=== PATIENT | female | born 1970 | race African-American/Black ===

== ENCOUNTER 2016-06-12 18:30 | Emergency (ER) | payer OTHER ==
[~2016-06-12] VITALS: Ht 172.7 cm; Wt 113.4 kg
[2016-06-12] MEDS ORDERED: HYDROCODONE/APAP 5/325MG TABLET. PO ONE (19:45)
[2016-06-12 19:50] LABS: NEG OBC UR NEG; POS OBC UR POS
[2016-06-12 19:52] LABS: BASO # 0.1 x10^3/uL (0.0-0.2); BASO % 1 % (0-3); EOS % 3 % (0-3); HEMATOCRIT 34.2 % (36.0-47.0); HEMOGLOBIN 11.7 g/dL (12.0-15.5); LYMPH # 2.4 x10^3/uL (1.0-4.8); LYMPH % 30 % (24-48); MEAN CORPUSCULAR HEMOGLOBIN 28 pg (25-35); MEAN CORPUSCULAR HGB CONC 34 g/dL (31-37); MEAN CORPUSCULAR VOLUME 81 fL (79-100); MONO % 17 % (0-9); NEUT % 48 % (31-73); PLATELET COUNT 435 x10^3/uL (140-400); RED BLOOD COUNT 4.21 x10^6/uL (3.50-5.40); RED CELL DISTRIBUTION WIDTH 17.5 % (11.5-14.5); WHITE BLOOD COUNT 7.9 x10^3/uL (4.0-11.0)
[2016-06-12 19:54] LABS: BILIRUBIN,URINE MODERATE (NEG); GLUCOSE,URINE NEGATIVE (NEG); NITRITE,URINE NEGATIVE (NEG); PH,URINE 5.5; PROTEIN,URINE NEGATIVE (NEG-TRACE)
[2016-06-12 20:04] LABS: BACTERIA,URINE FEW /HPF (0-FEW); RBC,URINE 0 /HPF (0-2); SQUAMOUS EPITHELIAL CELL,UR MANY /LPF
--- NOTE | 2016-06-12 21:05 | PHYS DOC ---
Past Medical History Past Medical History: GERD Past Surgical History: No Surgical History Alcohol Use: Occasionally Drug Use: None Adult General Chief Complaint Chief Complaint: ABDOMINAL PAIN HPI HPI 45-year-old female presenting to the emergency department today with abdominal pain generally. She reports suprapubic abdominal pain. The pain is sharp and intermittent. It is associated with flank pain. It is nonradiating. It is constant. She also has noticed mild yellowing of her skin and conjunctiva. She also feels that she's had low energy recently. She denies any nausea or vomiting. She denies fevers or chills. Review of Systems Review of Systems ROS negative for chest pain shortness of breath. Negative for fevers or chills nausea or vomiting. All other review of systems is negative unless otherwise noted in history of present illness. Current Medications Current Medications Current Medications Medications (Trade) Dose Ordered Sig/Narendra Start Time Stop Time Status Last Admin Dose Admin Acetaminophen/ Hydrocodone Bitart (Lortab 5/325) 2 tab 1X ONCE 06/12/16 19:45 06/12/16 19:56 DC 06/12/16 20:14 2 TAB Allergies Allergies Allergies Coded Allergies Type Severity Reaction Last Updated Verified codeine Allergy Intermediate 05/18/14 Yes Physical Exam Physical Exam Constitutional: Well developed, well nourished, no acute distress, non-toxic appearance. HENT: Normocephalic, atraumatic, bilateral external ears normal, oropharynx moist, no oral exudates, nose normal. [] Eyes: PERRLA, EOMI, conjunctiva mildly yellow, no discharge. Neck: Normal range of motion, no tenderness, supple, no stridor. [] Cardiovascular:Heart rate regular rhythm, no murmur [] Lungs & Thorax: Bilateral breath sounds clear to auscultation Abdomen: Soft nontender abdomen without rebound tenderness or guarding present. Negative McBurneys point. Negative Diaz sign. No ecchymosis present. Skin: Warm, dry, no erythema, no rash. Back: No tenderness, no CVA tenderness. [] Extremities: No tenderness, no cyanosis, no clubbing, ROM intact, no edema. Neurologic: Alert and oriented X 3, normal motor function, normal sensory function, no focal deficits noted. Psychologic: Affect normal, judgement normal, mood normal. [] Current Patient Data Vital Signs Vital Signs Date Time Temp Pulse Resp B/P Pulse Ox O2 Delivery O2 Flow Rate FiO2 06/12/16 20:14 18 Room Air 06/12/16 20:13 84 116/70 100 06/12/16 19:16 98.4 98.4 Lab Values Laboratory Tests Test 06/12/16 19:30 06/12/16 19:40 White Blood Count 7.9x10^3/uL (4.0-11.0) Red Blood Count 4.21x10^6/uL (3.50-5.40) Hemoglobin 11.7g/dL (12.0-15.5) L Hematocrit 34.2% (36.0-47.0) L Mean Corpuscular Volume 81fL (79-100) Mean Corpuscular Hemoglobin 28pg (25-35) Mean Corpuscular Hemoglobin Concent 34g/dL (31-37) Red Cell Distribution Width 17.5% (11.5-14.5) H Platelet Count 435x10^3/uL (140-400) H Neutrophils (%) (Auto) 48% (31-73) Lymphocytes (%) (Auto) 30% (24-48) Monocytes (%) (Auto) 17% (0-9) H Eosinophils (%) (Auto) 3% (0-3) Basophils (%) (Auto) 1% (0-3) Neutrophils # (Auto) 3.7x10^3uL (1.8-7.7) Lymphocytes # (Auto) 2.4x10^3/uL (1.0-4.8) Monocytes # (Auto) 1.4x10^3/uL (0.0-1.1) H Eosinophils # (Auto) 0.3x10^3/uL (0.0-0.7) Basophils # (Auto) 0.1x10^3/uL (0.0-0.2) Urine Collection Type Unknown Urine Color [place] Urine Clarity Turbid Urine pH 5.5 Urine Specific [place] 1.020 Urine Protein Negativemg/dL (NEG-TRACE) Urine Glucose (UA) Negativemg/dL (NEG) Urine Ketones (Stick) Negativemg/dL (NEG) Urine Blood Negative (NEG) Urine Nitrite Negative (NEG) Urine Bilirubin Moderate (NEG) Urine Urobilinogen Dipstick 1.0mg/dL (0.2 mg/dL) Urine Leukocyte Esterase Negative (NEG) Urine RBC 0/HPF (0-2) Urine WBC 1-4/HPF (0-4) Urine Squamous Epithelial Cells Many/LPF Urine Bacteria Few/HPF (0-FEW) Urine Mucus Mod/LPF Urine Test Negative (NEG) Laboratory Tests 06/12/16 19:30 EKG EKG [] Radiology/Procedures Radiology/Procedures [] Course & Med Decision Making Course & Med Decision Making Pertinent Labs and Imaging studies reviewed. (See chart for details) 45-year-old female presenting to the emergency department today with generalized abdominal pain. Vital signs were unremarkable. Physical exam showed a nontender abdomen. There was yellowing of the skin suggestive of jaundiceness. Urinalysis was positive for bilirubin. No signs of infection. CBC within normal limits. Chemistry panel pending at this time. Repeat abdominal exam continues to show a nontender abdomen. Patient was signed out to Dr. Lopes at 9:00 PM. Plan to follow up on chemistry panel and reevaluation. Dragon Disclaimer Dragon Disclaimer This electronic medical record was generated, in whole or in part, using a voice recognition dictation system. Departure Departure Impression: Primary Impression: Abdominal pain Referrals: NO PCP (PCP) ALY KIRBY MD Jun 12, 2016 21:05
[2016-06-12 21:16] LABS: CALCIUM 8.1 mg/dL (8.5-10.1); GFR 72.2; POTASSIUM 3.8 mmol/L (3.5-5.1)
[2016-06-12 21:27] LABS: ALBUMIN 2.2 g/dL (3.4-5.0); ALBUMIN/GLOBULIN RATIO 0.3 (1.0-1.7); TOTAL BILIRUBIN 4.3 mg/dL (0.2-1.0); TOTAL PROTEIN 8.9 g/dL (6.4-8.2)
[2016-06-12] MEDS ORDERED: HYDR25CA PO (22:38)
[2016-06-12] MEDS ORDERED: ONDA4TAB10 SL (22:38)
--- NOTE | 2016-06-12 22:42 | ACF ---
Admission Forms Criteria ABDOMINAL PAIN Clinical Indications for Admission to Inpatient Care (Place 'X' for any and all applicable criteria): Admission is indicated for ANY ONE of the following(1)(2)(3)(4)(5): [X ]I. Inpatient admission required rather than observation care (Also use Abdominal Pain: Observation Care, as appropriate) because of ANY ONE of the following: [ ]a) Severe pain requiring acute inpatient management [ ]b) Identification of etiology/finding that requires inpatient care (eg, aortic dissection, free air) [ ]c) Absent bowel sounds with complete ileus(6) [ ]d) Suspected toxic megacolon [ ]e) Severe electrolyte abnormalities requiring inpatient care [ ]f) High fever or infection requiring inpatient admission as indicated by ANY ONE of following(7)(8): [ ] i) Appropriate outpatient or observational care antimicrobial treatment unavailable, not effective, or not feasible [ ] ii) Documented bacteremia [ ] iii) Temperature > 104.9 degrees F (oral) [ ] iv) T >103.1 F (oral) or < 96.8 F(rectal) that does not respond to all emergency treatment measures [ ]g) Signs of intestinal obstruction [B] [X ]h) Hemodynamic instability [ ]i) IV fluid to replace significant ongoing losses (greater than 3 L/m2 per day) (12)(13) [ ]j) Percutaneous or open drainage (eg, abscess, biliary tract ) procedures [ ]k) Parenteral nutrition regimen that must be implemented on inpatient basis [X ]l) Other condition,treatment or monitoring requiring inpatient admission. [ ]II. Peritoneal signs present [ ]III. Surgery needed that cannot be performed on an ambulatory basis. [ ]IV. Evaluation requires patient to not eat or drink for extended period ( eg, more than 24 hours). [ ]V. Contraindications and/or Inappropriate clinical situations for Observational Care in patients with abdominal pain, when ANY ONE of the following is required: [ ]a) Thorough evaluation is required to prevent catastrophic events due to delays in diagnosing (e.g.Mesenteric ischemia) 1,3 [ ]b) Patient with severe pathology or with chronic symptoms unlikely to improve in the ED stay (3) [ ]. General contraindications and/or Inappropriate clinical situations for Observational Care in patients with abdominal pain, when ANY ONE of the following is required: [ ]a) Prediction of prolongation of LOS based on ANY ONE of the following may be considered as a contraindication for observational care 2, 3, 4, 5, 6, 7, 8, 9, 10, 11 [ ]i) Age > 65 yrs. [ ]ii) Patient arriving by ambulance [ ]iii) Patient with high acuity [ ]iv) Patient requiring vital sign monitoring [ ]v) Patient on IV medication [ ]b) Systolic blood pressures 180mmHg 3,12 [ ]c) Patient with altered mental status including delirium and other alteration of consciousness, (3) [ ]d) Patient whose discharge disposition will be to a retirement home or rehabilitation home should not be managed in Emergency Department Observation Unit. CMS rule requires 3 days hospital stay before such placement.3,13 [ ]e) Patient with failure to thrive due to broad array of etiologies 3,16,17 [ ]f) Inability to ambulate 3,14 Extended stay beyond goal length of stay may be needed for(2)(3): [ ]a) Persistent abdominal pain with suspected intra-abdominal process [ ]b) Diagnosed condition requiring continued stay (e.g., pancreatitis, complicated diverticulitis) [ ]c) Surgery (e.g., colectomy) The original [facility] content created by [employer] has been revised. The portions of the content which have been revised are identified through the use of italic text or in bold, and [facility] has neither reviewed nor approved the modified material.All other unmodified content is copyright [facility]. Please see references footnoted in the original [facility] edition 2016 Admission Criteria Met?: Yes PRAVEEN CHAMORRO Jun 12, 2016 22:42
[2016-06-12 22:43] VITALS: BP 117/68
[2016-06-12 23:01] LABS: ANISOCYTOSIS SLIGHT; PLT ESTIMATE INCREASED (ADEQUATE); POLYCHROMASIA SLIGHT
[2016-06-12 23:02] LABS: TARGET CELLS MANY
== END 2016-06-12 22:53 | disposition home or self-care (01) ==
LOC: ER 18:30
DX: R10.30 Lower abdominal pain, unspecified (principal); K75.9 Inflammatory liver disease, unspecified; R11.2 Nausea with vomiting, unspecified; K21.9 Gastro-esophageal reflux disease without esophagitis; Z88.6 Allergy status to analgesic agent
CPT/HCPCS: 36415; 80053; 81001; 81025; 83690; 85007; 85027; 99284

== ENCOUNTER 2018-07-04 01:00 | Inpatient (IN) | payer SELFPAY ==
[~2018-07-04] VITALS: Ht 172.7 cm; Wt 123.0 kg
[~2018-07-04 01:00] MED LIST: HYDR25CA PO; ONDA4TAB10 SL
[2018-07-04 01:38] LABS: BASO # 0.1 x10^3/uL (0.0-0.2); BASO % 1 % (0-3); EOS # 0.1 x10^3/uL (0.0-0.7); EOS % 2 % (0-3); HEMATOCRIT 36.1 % (36.0-47.0); HEMOGLOBIN 11.9 g/dL (12.0-15.5); LYMPH # 1.8 x10^3/uL (1.0-4.8); LYMPH % 29 % (24-48); MEAN CORPUSCULAR HEMOGLOBIN 30 pg (25-35); MEAN CORPUSCULAR HGB CONC 33 g/dL (31-37); MEAN CORPUSCULAR VOLUME 90 fL (79-100); MONO # 0.6 x10^3/uL (0.0-1.1); MONO % 10 % (0-9); NEUT # 3.6 x10^3uL (1.8-7.7); NEUT % 58 % (31-73); PLATELET COUNT 165 x10^3/uL (140-400); RED BLOOD COUNT 4.02 x10^6/uL (3.50-5.40); RED CELL DISTRIBUTION WIDTH 22.3 % (11.5-14.5); WHITE BLOOD COUNT 6.3 x10^3/uL (4.0-11.0)
[2018-07-04] MEDS ORDERED: DEXAMETHASONE SOD PHOS 20 MG/5 ML VIAL. IV ONE (01:45)
[2018-07-04] MEDS ORDERED: IV NORMAL SALINE 1000ML BAG 1,000 ML IV ONE (01:45)
[2018-07-04] MEDS ORDERED: diphenhydrAMINE 50 MG/ML VIAL IVP ONE (01:45)
[2018-07-04 01:55] LABS: CALCIUM 8.2 mg/dL (8.5-10.1); GFR 71.6; POTASSIUM 3.6 mmol/L (3.5-5.1)
[2018-07-04 02:05] LABS: ALBUMIN 2.1 g/dL (3.4-5.0); ALBUMIN/GLOBULIN RATIO 0.3 (1.0-1.7); MAGNESIUM 1.7 mg/dL (1.8-2.4); TOTAL BILIRUBIN 4.5 mg/dL (0.2-1.0); TOTAL PROTEIN 9.9 g/dL (6.4-8.2)
--- NOTE | 2018-07-04 02:40 | PHYS DOC ---
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 Patient reports that she was diagnosed with an autoimmune liver condition but can't remember what it was, she has not followed up with her liver doctor in two years because she can't pay for it. She reports that she has had this rash before and she was treated with steroids and it resolved. She reports that the rash is worse at night, she denies nausea, vomiting, diarrhea, and constipation. She reports that the rash began on her chest Review of Systems Review of Systems Constitutional: Denies fever or chills [] Eyes: Denies change in visual acuity, redness, or eye pain [] HENT: Denies nasal congestion or sore throat [] Respiratory: Denies cough or shortness of breath [] Cardiovascular: Denies chest pain or palpitations [] GI: Denies abdominal pain, nausea, vomiting, or diarrhea [] : Denies dysuria or hematuria [] Musculoskeletal: Denies back pain or joint pain [] Integument: Reports pruritic rash and skin lesions across chest and back [] Neurologic: Denies headache, focal weakness or sensory changes [] Complete systems were reviewed and found to be within normal limits, except as documented in this note. Current Medications Current Medications Current Medications Medications (Trade) Dose Ordered Sig/Narendra Start Time Stop Time Status Last Admin Dose Admin Dexamethasone Sodium Phosphate (Decadron) 10 mg 1X ONCE 07/04/18 01:45 07/04/18 01:46 DC 07/04/18 02:30 10 MG Diphenhydramine HCl (Benadryl) 25 mg 1X ONCE 07/04/18 01:45 07/04/18 01:46 DC 07/04/18 02:15 25 MG Magnesium Sulfate 50 ml @ 25 mls/hr 1X ONCE 07/04/18 03:00 07/04/18 04:59 07/04/18 03:02 25 MLS/HR Ondansetron HCl (Zofran) 4 mg PRN Q8HRS PRN 07/04/18 03:00 07/05/18 02:59 Sodium Chloride 1,000 ml @ 1,000 mls/hr 1X ONCE 07/04/18 01:45 07/04/18 02:44 DC 07/04/18 02:15 1,000 MLS/HR Allergies Allergies Allergies Coded Allergies Type Severity Reaction Last Updated Verified codeine Allergy Intermediate 05/18/14 Yes Physical Exam Physical Exam Constitutional: Well developed, well nourished, no acute distress, non-toxic appearance. [] HENT: Normocephalic, atraumatic, nose normal. [] Eyes: Sclera icteric, no discharge. [] Neck: Normal range of motion, no tenderness. [] Cardiovascular: Heart rate regular rhythm, no murmur [] Lungs & Thorax: Bilateral breath sounds clear to auscultation [] Abdomen: Soft, no tenderness. [] Skin: Warm, dry, no erythema, pruritic vesicular rash across the chest and back [] Extremities: No tenderness, 1+ pitting edema BLE. [] Neurologic: Alert and oriented X 3, no focal deficits noted. [] Psychologic: Affect normal, judgement normal, mood normal. [] Current Patient Data Vital Signs Vital Signs Date Time Temp Pulse Resp B/P (MAP) Pulse Ox O2 Delivery O2 Flow Rate FiO2 07/04/18 03:14 82 16 136/84 (101) 98 Room Air 07/04/18 01:22 98.3 98.3 Lab Values Laboratory Tests Test 07/04/18 01:26 White Blood Count 6.3 x10^3/uL (4.0-11.0) Red Blood Count 4.02 x10^6/uL (3.50-5.40) Hemoglobin 11.9 g/dL (12.0-15.5) L Hematocrit 36.1 % (36.0-47.0) Mean Corpuscular Volume 90 fL (79-100) Mean Corpuscular Hemoglobin 30 pg (25-35) Mean Corpuscular Hemoglobin Concent 33 g/dL (31-37) Red Cell Distribution Width 22.3 % (11.5-14.5) H Platelet Count 165 x10^3/uL (140-400) Neutrophils (%) (Auto) 58 % (31-73) Lymphocytes (%) (Auto) 29 % (24-48) Monocytes (%) (Auto) 10 % (0-9) H Eosinophils (%) (Auto) 2 % (0-3) Basophils (%) (Auto) 1 % (0-3) Neutrophils # (Auto) 3.6 x10^3uL (1.8-7.7) Lymphocytes # (Auto) 1.8 x10^3/uL (1.0-4.8) Monocytes # (Auto) 0.6 x10^3/uL (0.0-1.1) Eosinophils # (Auto) 0.1 x10^3/uL (0.0-0.7) Basophils # (Auto) 0.1 x10^3/uL (0.0-0.2) Platelet Estimate Pending Prothrombin Time 17.0 SEC (11.7-14.0) H Prothrombin Time INR 1.4 (0.8-1.1) H PTT 38 SEC (24-38) Sodium Level 132 mmol/L (136-145) L Potassium Level 3.6 mmol/L (3.5-5.1) Chloride Level 102 mmol/L (98-107) Carbon Dioxide Level 25 mmol/L (21-32) Anion Gap 5 (6-14) L Blood Urea Nitrogen 10 mg/dL (7-20) Creatinine 1.0 mg/dL (0.6-1.0) Estimated GFR (Cockcroft-Gault) 71.6 BUN/Creatinine Ratio 10 (6-20) Glucose Level 132 mg/dL (70-99) H Calcium Level 8.2 mg/dL (8.5-10.1) L Magnesium Level 1.7 mg/dL (1.8-2.4) L Total Bilirubin 4.5 mg/dL (0.2-1.0) H Aspartate Amino Transferase (AST) 1125 U/L (15-37) H Alanine Aminotransferase (ALT) 592 U/L (14-59) H Alkaline Phosphatase 399 U/L (46-116) H Ammonia 26 mcmol/L (11-34) Total Protein 9.9 g/dL (6.4-8.2) H Albumin 2.1 g/dL (3.4-5.0) L Albumin/Globulin Ratio 0.3 (1.0-1.7) L Lipase 186 U/L (73-393) Laboratory Tests 07/04/18 01:26 Laboratory Tests 07/04/18 01:26 EKG EKG [] Radiology/Procedures Radiology/Procedures [] Course & Med Decision Making Course & Med Decision Making Pertinent Labs and Imaging studies reviewed. (See chart for details) Patient is a 47 YO F that is presenting with a pruritic rash that began 2 weeks ago. Patient has a history of autoimmune liver disease and has had a rash before that was treated with steroids. She has been unable to follow up with her auto hauler at because she cannot pay for it. Her daughter two weeks ago which coincides with the onset of symptoms. Labs were obtained and posted to chart. LFT's were slightly decreased compared to last visit, bilirubin was slightly increased compared to last time. Pruritus was addressed with steroids. Patient offered outpatient follow up versus admission and evaluation of progression of liver disease. Patient reports she does not have a PCP. Patient opts to be admitted because of inability to follow-up. Patient requiring admission for further evaluation and treatment. Discussed with Dr. Burrell (hospitalist) who is in agreement with admission. Discussed findings and plan with patient and family, who acknowledge understanding and agreement. Dragon Disclaimer Dragon Disclaimer This electronic medical record was generated, in whole or in part, using a voice recognition dictation system. Departure Departure Impression: Primary Impression: Hyperbilirubinemia Additional Impressions: Generalized pruritus Transaminasemia Disposition: ADMITTED INPATIENT (Med/Surg) Admitting Physician: Tiki Burrell Condition: STABLE Referrals: NO PCP (PCP) Problem Qualifiers ASHLEY PATEL DO Jul 04, 2018 02:40
[2018-07-04] MEDS ORDERED: ONDANSETRON PF 4 MG/2 ML VIAL. IV PRN ×2 (03:00→08:15)
[2018-07-04] MEDS ORDERED: MAGNESIUM SULFATE 2GM 50 ML IV ONE (03:00)
[2018-07-04 04:30] VITALS: BP 143/102
[2018-07-04 05:21] LABS: ANISOCYTOSIS SLIGHT; PLT ESTIMATE ADEQUATE (ADEQUATE); TARGET CELLS MOD
[2018-07-04] MEDS ORDERED: LISI1TAB5 PO (05:33)
--- NOTE | 2018-07-04 05:37 | NUR ---
The patient, WILLIAM WALSH, 47 y/o, F admitted by DEMETRI CABRERA MD, was given written information regarding hospital policies, unit procedures and contact persons. Patient arrived via wheelchair assisted by ED staff. Valuables were checked and noted. Patient is in bed at this time watching TV. Pictures were taken of patient's rash. Patient states no needs at this time, this RN will continue to monitor the patient at this time.
[2018-07-04 07:00] VITALS: BP 123/74
[2018-07-04] MEDS ORDERED: ACETAMINOPHEN 500 MG TABLET PO PRN (08:15)
[2018-07-04] MEDS ORDERED: hydrOXYzine PAMOATE 25 MG CAPSULE PO PRN (08:15)
[2018-07-04] MEDS ORDERED: NON FORMULARY ITEM (Lisinopril/Hydrochlorothiazide (Lisinopril-Hctz 20-12.5 Mg Tab) 1 TAB) PO SCH (09:00)
[2018-07-04] MEDS ORDERED: IOHEXOL 300 MG/ML 100ML VIAL. IV ONE (09:30)
[2018-07-04] MEDS ORDERED: CONTRAST GIVEN. MC PRN (09:30)
--- NOTE | 2018-07-04 09:51 | PDOC2 ---
CONSULT Date of Consult Date of Consult DATE: 07/04/18 TIME: 09:38 History of Present Illness Reason for Visit: 47 yo female with history of abnormal LFTs dating back for over two years- similar labs seen at ER visit here in 06/2016. We don't have the records but was referred to [facility] and she relates liver biopsy and diagnosis of autoimmune liver disease made. She was started on Imuran and Budesonide - not sure how effective because she lost her insurance and so f/u limited and had to stop budesonide due to cost. she did however continue Imuran. She relates episodes of jaundice and pruritus and rash, mostly in winter she believes. She presents now with rash on chest with pruritus, and jaundice. She denies fever, cough, abd pain but does have occasional loose stool (unchanged) Past Medical History Cardiovascular: HTN Hepatobiliary: Other (autoimmune liver disease) Current Problem List Problem List Problems Medical Problems: (1) Generalized pruritus Status: Acute (2) Hyperbilirubinemia Status: Acute (3) Transaminasemia Status: Acute Current Medications Current Medications Current Medications Dexamethasone Sodium Phosphate (Decadron) 10 mg 1X ONCE IV Last administered on 07/04/18at 02:30; Start 07/04/18 at 01:45; Stop 07/04/18 at 01:46; Status DC Diphenhydramine HCl (Benadryl) 25 mg 1X ONCE IVP Last administered on at 02:15; Start 07/04/18 at 01:45; Stop 07/04/18 at 01:46; Status DC Sodium Chloride 1,000 ml @ 1,000 mls/hr 1X ONCE IV Last administered on at 02:15; Start 07/04/18 at 01:45; Stop 07/04/18 at 02:44; Status DC Magnesium Sulfate 50 ml @ 25 mls/hr 1X ONCE IV Last administered on 07/04/18at 03:02; Start 07/04/18 at 03:00; Stop 07/04/18 at 04:59; Status DC Ondansetron HCl (Zofran) 4 mg PRN Q8HRS PRN IV NAUSEA/VOMITING; Start 07/04/18 at 03:00; Stop 07/04/18 at 08:12; Status DC Ondansetron HCl (Zofran) 4 mg PRN Q6HRS PRN IV NAUSEA/VOMITING; Start 07/04/18 at 08:15 Acetaminophen (Tylenol) 500 mg PRN Q6HRS PRN PO MILD PAIN / TEMP; Start at 08:15 Ondansetron HCl (Zofran Odt) 4 mg Q8HRS PO ; Start 07/04/18 at 09:00 Hydroxyzine Pamoate (Vistaril) 25 mg PRN TID PRN PO ITCHING; Start 07/04/18 at 08:15 Non-Formulary Medication (Lisinopril/ Hydrochlorothiazide (Lisinopril-Hctz 20- 12.5 Mg Tab)) 1 tab DAILY PO ; Start 07/04/18 at 09:00; Status UNV Lisinopril (Prinivil) 20 mg DAILY PO ; Start 07/04/18 at 09:00 Hydrochlorothiazide (Microzide) 12.5 mg DAILY PO ; Start 07/04/18 at 09:00 Iohexol (Omnipaque 300 Mg/ml) 75 ml 1X ONCE IV ; Start 07/04/18 at 09:30; Stop 07/04/18 at 09:31 Info (CONTRAST GIVEN -- Rx MONITORING) 1 each PRN DAILY PRN MC SEE COMMENTS; Start 07/04/18 at 09:30; Stop 07/06/18 at 09:29 Active Scripts Active Vistaril (Hydroxyzine Pamoate) 25 Mg Capsule 1 Cap PO TID PRN Zofran Odt (Ondansetron) 4 Mg Tab.rapdis 1 Tab SL Q8HRS Reported Lisinopril-Hctz 20-12.5 Mg Tab (Lisinopril/Hydrochlorothiazide) 1 Each Tablet 1 Tab PO DAILY Allergies Allergies: Coded Allergies: codeine (Verified Allergy, Intermediate, 05/18/14) ROS Gastrointestinal: Yes Other (jaundice) Skin: Yes Pruritus, Yes Rash Physical Exam General: Alert, Oriented X3 HEENT: PERRLA, Other (mild jaundice) Lungs: Clear to auscultation Heart: Regular rate, Normal S1, Normal S2 Abdomen: Normal bowel sounds, Soft, No tenderness, No hepatosplenomegaly Skin: Other (mild rash on chest with some excoriation) Vitals VITALS Vital Signs Date Time Temp Pulse Resp B/P (MAP) Pulse Ox O2 Delivery O2 Flow Rate FiO2 07/04/18 07:00 97.9 87 18 123/74 (90) 97 Room Air 97.9 Labs Labs Laboratory Tests Test 07/04/18 01:26 White Blood Count 6.3 x10^3/uL (4.0-11.0) Red Blood Count 4.02 x10^6/uL (3.50-5.40) Hemoglobin 11.9 g/dL (12.0-15.5) Hematocrit 36.1 % (36.0-47.0) Mean Corpuscular Volume 90 fL (79-100) Mean Corpuscular Hemoglobin 30 pg (25-35) Mean Corpuscular Hemoglobin Concent 33 g/dL (31-37) Red Cell Distribution Width 22.3 % (11.5-14.5) Platelet Count 165 x10^3/uL (140-400) Neutrophils (%) (Auto) 58 % (31-73) Lymphocytes (%) (Auto) 29 % (24-48) Monocytes (%) (Auto) 10 % (0-9) Eosinophils (%) (Auto) 2 % (0-3) Basophils (%) (Auto) 1 % (0-3) Neutrophils # (Auto) 3.6 x10^3uL (1.8-7.7) Lymphocytes # (Auto) 1.8 x10^3/uL (1.0-4.8) Monocytes # (Auto) 0.6 x10^3/uL (0.0-1.1) Eosinophils # (Auto) 0.1 x10^3/uL (0.0-0.7) Basophils # (Auto) 0.1 x10^3/uL (0.0-0.2) Platelet Estimate Adequate (ADEQUATE) Anisocytosis Slight Target Cells Mod Prothrombin Time 17.0 SEC (11.7-14.0) Prothromb Time International Ratio 1.4 (0.8-1.1) Activated Partial Thromboplast Time 38 SEC (24-38) Sodium Level 132 mmol/L (136-145) Potassium Level 3.6 mmol/L (3.5-5.1) Chloride Level 102 mmol/L (98-107) Carbon Dioxide Level 25 mmol/L (21-32) Anion Gap 5 (6-14) Blood Urea Nitrogen 10 mg/dL (7-20) Creatinine 1.0 mg/dL (0.6-1.0) Estimated GFR (Cockcroft-Gault) 71.6 BUN/Creatinine Ratio 10 (6-20) Glucose Level 132 mg/dL (70-99) Calcium Level 8.2 mg/dL (8.5-10.1) Magnesium Level 1.7 mg/dL (1.8-2.4) Total Bilirubin 4.5 mg/dL (0.2-1.0) Aspartate Amino Transf (AST/SGOT) 1125 U/L (15-37) Alanine Aminotransferase (ALT/SGPT) 592 U/L (14-59) Alkaline Phosphatase 399 U/L (46-116) Ammonia 26 mcmol/L (11-34) Total Protein 9.9 g/dL (6.4-8.2) Albumin 2.1 g/dL (3.4-5.0) Albumin/Globulin Ratio 0.3 (1.0-1.7) Lipase 186 U/L (73-393) Laboratory Tests Test 07/04/18 01:26 White Blood Count 6.3 x10^3/uL (4.0-11.0) Red Blood Count 4.02 x10^6/uL (3.50-5.40) Hemoglobin 11.9 g/dL (12.0-15.5) Hematocrit 36.1 % (36.0-47.0) Mean Corpuscular Volume 90 fL (79-100) Mean Corpuscular Hemoglobin 30 pg (25-35) Mean Corpuscular Hemoglobin Concent 33 g/dL (31-37) Red Cell Distribution Width 22.3 % (11.5-14.5) Platelet Count 165 x10^3/uL (140-400) Neutrophils (%) (Auto) 58 % (31-73) Lymphocytes (%) (Auto) 29 % (24-48) Monocytes (%) (Auto) 10 % (0-9) Eosinophils (%) (Auto) 2 % (0-3) Basophils (%) (Auto) 1 % (0-3) Neutrophils # (Auto) 3.6 x10^3uL (1.8-7.7) Lymphocytes # (Auto) 1.8 x10^3/uL (1.0-4.8) Monocytes # (Auto) 0.6 x10^3/uL (0.0-1.1) Eosinophils # (Auto) 0.1 x10^3/uL (0.0-0.7) Basophils # (Auto) 0.1 x10^3/uL (0.0-0.2) Platelet Estimate Adequate (ADEQUATE) Anisocytosis Slight Target Cells Mod Prothrombin Time 17.0 SEC (11.7-14.0) Prothromb Time International Ratio 1.4 (0.8-1.1) Activated Partial Thromboplast Time 38 SEC (24-38) Sodium Level 132 mmol/L (136-145) Potassium Level 3.6 mmol/L (3.5-5.1) Chloride Level 102 mmol/L (98-107) Carbon Dioxide Level 25 mmol/L (21-32) Anion Gap 5 (6-14) Blood Urea Nitrogen 10 mg/dL (7-20) Creatinine 1.0 mg/dL (0.6-1.0) Estimated GFR (Cockcroft-Gault) 71.6 BUN/Creatinine Ratio 10 (6-20) Glucose Level 132 mg/dL (70-99) Calcium Level 8.2 mg/dL (8.5-10.1) Magnesium Level 1.7 mg/dL (1.8-2.4) Total Bilirubin 4.5 mg/dL (0.2-1.0) Aspartate Amino Transf (AST/SGOT) 1125 U/L (15-37) Alanine Aminotransferase (ALT/SGPT) 592 U/L (14-59) Alkaline Phosphatase 399 U/L (46-116) Ammonia 26 mcmol/L (11-34) Total Protein 9.9 g/dL (6.4-8.2) Albumin 2.1 g/dL (3.4-5.0) Albumin/Globulin Ratio 0.3 (1.0-1.7) Lipase 186 U/L (73-393) Assessment/Plan Assessment/Plan Jaundice and abnormal LFTS- with her history, consistent with inadequately treated autoimmune liver disease- on Imuran but present symptoms and labs suggest changes are in order- we need records but her prior labs and her history of [facility] liver clinic and liver biopsy, along with the meds she is on, all support this diagnosis Rash- not sure if this is just from pruritus from liver disease (most likely) or a separate issue Plan- this is an outpt management issue but she has lost her insurance so re- establishing access to medical care is lazo- if not better managed, she will progress to cirrhosis and end stage liver disease will screen with US just to make sure nothing else is ongoing will start prednisone on taper- should help pruritus and autoimmune liver disease with little short term risk would increase dose of Imuran to 150 mg - the 100 mg is not working is is fairly low dose ( should be greater than 1 or 1.5 mg /kg) Ok for d/c soon from GI point of view order records from [facility] RAVEN COMBS MD Jul 04, 2018 09:51
[2018-07-04] MEDS ORDERED: predniSONE 10 MG TABLET PO SCH (10:00)
[2018-07-04] MEDS ORDERED: predniSONE 20 MG TABLET PO SCH (10:00)
--- NOTE | 2018-07-04 11:01 | PDOC1 ---
History and Physical Date of Admission Date of Admission DATE: 07/04/18 TIME: 10:54 Identification/Chief Complaint Chief Complaint jaundice, pruritus Source Source: Caregiver, Chart review, Patient History of Present Illness History of Present Illness [id number] obese female sounds like diagnosis of inadequately treated autoimmune hepatitis, claims on Imuran but self-pay hence some issues with following up [facility] so that's when she decided to come here. But claims of jaundice, pruritus. She is currently scratching. Admitted by ER because of hyperbilirubinemia elevated LFTs. She is nontoxic appearing. AST 592 [id number]. Total bili is 4.5. NO abd pain, She is a smoker. Magnesium mildly low 1.7 with sodium 132. We're requesting [facility] records. GI has seen pt and also feels the same. Started some prednisone and maybe increase Imuran. The rest will have to decide once we get [facility] records. I did order ultrasound, I did cancel CAT scan pending [facility] records acquisition Past Medical History Cardiovascular: HTN Hepatobiliary: Other (autoimmune liver disease) Past Surgical History Past Surgical History: No pertinent history Family History Family History: No Significant Social History Smoke: <1 pack per day ALCOHOL: none Drugs: None Current Problem List Problem List Problems Medical Problems: (1) Generalized pruritus Status: Acute (2) Hyperbilirubinemia Status: Acute (3) Transaminasemia Status: Acute Current Medications Current Medications Current Medications Dexamethasone Sodium Phosphate (Decadron) 10 mg 1X ONCE IV Last administered on 07/04/18at 02:30; Start 07/04/18 at 01:45; Stop 07/04/18 at 01:46; Status DC Diphenhydramine HCl (Benadryl) 25 mg 1X ONCE IVP Last administered on at 02:15; Start 07/04/18 at 01:45; Stop 07/04/18 at 01:46; Status DC Sodium Chloride 1,000 ml @ 1,000 mls/hr 1X ONCE IV Last administered on at 02:15; Start 07/04/18 at 01:45; Stop 07/04/18 at 02:44; Status DC Magnesium Sulfate 50 ml @ 25 mls/hr 1X ONCE IV Last administered on 07/04/18at 03:02; Start 07/04/18 at 03:00; Stop 07/04/18 at 04:59; Status DC Ondansetron HCl (Zofran) 4 mg PRN Q8HRS PRN IV NAUSEA/VOMITING; Start 07/04/18 at 03:00; Stop 07/04/18 at 08:12; Status DC Ondansetron HCl (Zofran) 4 mg PRN Q6HRS PRN IV NAUSEA/VOMITING; Start 07/04/18 at 08:15 Acetaminophen (Tylenol) 500 mg PRN Q6HRS PRN PO MILD PAIN / TEMP; Start at 08:15 Ondansetron HCl (Zofran Odt) 4 mg Q8HRS PO ; Start 07/04/18 at 09:00 Hydroxyzine Pamoate (Vistaril) 25 mg PRN TID PRN PO ITCHING; Start 07/04/18 at 08:15 Non-Formulary Medication (Lisinopril/ Hydrochlorothiazide (Lisinopril-Hctz 20- 12.5 Mg Tab)) 1 tab DAILY PO ; Start 07/04/18 at 09:00; Status UNV Lisinopril (Prinivil) 20 mg DAILY PO ; Start 07/04/18 at 09:00 Hydrochlorothiazide (Microzide) 12.5 mg DAILY PO ; Start 07/04/18 at 09:00 Iohexol (Omnipaque 300 Mg/ml) 75 ml 1X ONCE IV ; Start 07/04/18 at 09:30; Stop 07/04/18 at 09:31; Status DC Info (CONTRAST GIVEN -- Rx MONITORING) 1 each PRN DAILY PRN MC SEE COMMENTS; Start 07/04/18 at 09:30; Stop 07/06/18 at 09:29 Azathioprine (Imuran) 150 mg DAILY PO ; Start 07/04/18 at 10:00 Prednisone (Prednisone) 40 mg DAILY PO ; Start 07/04/18 at 10:00; Stop 07/04/18 at 10:00; Status DC Prednisone (Prednisone) 40 mg DAILY PO ; Start 07/04/18 at 10:00 Active Scripts Active Vistaril (Hydroxyzine Pamoate) 25 Mg Capsule 1 Cap PO TID PRN Zofran Odt (Ondansetron) 4 Mg Tab.rapdis 1 Tab SL Q8HRS Reported Lisinopril-Hctz 20-12.5 Mg Tab (Lisinopril/Hydrochlorothiazide) 1 Each Tablet 1 Tab PO DAILY Allergies Allergies: Coded Allergies: codeine (Verified Allergy, Intermediate, 05/18/14) ROS Review of System pruritus, jaundice, the rest of ROS 14 point negative Physical Exam General: Alert, Oriented X3, Cooperative, No acute distress, Other (icteric sclerae, itching or scratching during interview) HEENT: Atraumatic, PERRLA, EOMI Lungs: Clear to auscultation, Normal air movement Heart: S1S2, RRR, no thrills, no rubs, no gallops, no murmurs Breasts: Normal, Rt breast nml w/o mass, Lt breast nml w/o mass, Nipples normal Abdomen: Normal bowel sounds, Soft, No tenderness, No hepatosplenomegaly, No masses Rectal Exam: not examined PELVIC: Nml ext genitalia Extremities: No clubbing, No cyanosis, No edema, Normal pulses, No tenderness/ swelling Skin: No rashes, No breakdown, No significant lesion Neuro: Normal gait, Normal speech, Strength at 5/5 X4 ext, Normal tone, Sensation intact, Cranial nerves 3-12 NL, Reflexes 2+ Psych/Mental Status: Mental status NL, Mood NL Vitals Vitals Vital Signs Date Time Temp Pulse Resp B/P (MAP) Pulse Ox O2 Delivery O2 Flow Rate FiO2 07/04/18 07:00 97.9 87 18 123/74 (90) 97 Room Air 97.9 Labs Labs Laboratory Tests Test 07/04/18 01:26 White Blood Count 6.3 x10^3/uL (4.0-11.0) Red Blood Count 4.02 x10^6/uL (3.50-5.40) Hemoglobin 11.9 g/dL (12.0-15.5) Hematocrit 36.1 % (36.0-47.0) Mean Corpuscular Volume 90 fL (79-100) Mean Corpuscular Hemoglobin 30 pg (25-35) Mean Corpuscular Hemoglobin Concent 33 g/dL (31-37) Red Cell Distribution Width 22.3 % (11.5-14.5) Platelet Count 165 x10^3/uL (140-400) Neutrophils (%) (Auto) 58 % (31-73) Lymphocytes (%) (Auto) 29 % (24-48) Monocytes (%) (Auto) 10 % (0-9) Eosinophils (%) (Auto) 2 % (0-3) Basophils (%) (Auto) 1 % (0-3) Neutrophils # (Auto) 3.6 x10^3uL (1.8-7.7) Lymphocytes # (Auto) 1.8 x10^3/uL (1.0-4.8) Monocytes # (Auto) 0.6 x10^3/uL (0.0-1.1) Eosinophils # (Auto) 0.1 x10^3/uL (0.0-0.7) Basophils # (Auto) 0.1 x10^3/uL (0.0-0.2) Platelet Estimate Adequate (ADEQUATE) Anisocytosis Slight Target Cells Mod Prothrombin Time 17.0 SEC (11.7-14.0) Prothromb Time International Ratio 1.4 (0.8-1.1) Activated Partial Thromboplast Time 38 SEC (24-38) Sodium Level 132 mmol/L (136-145) Potassium Level 3.6 mmol/L (3.5-5.1) Chloride Level 102 mmol/L (98-107) Carbon Dioxide Level 25 mmol/L (21-32) Anion Gap 5 (6-14) Blood Urea Nitrogen 10 mg/dL (7-20) Creatinine 1.0 mg/dL (0.6-1.0) Estimated GFR (Cockcroft-Gault) 71.6 BUN/Creatinine Ratio 10 (6-20) Glucose Level 132 mg/dL (70-99) Calcium Level 8.2 mg/dL (8.5-10.1) Magnesium Level 1.7 mg/dL (1.8-2.4) Total Bilirubin 4.5 mg/dL (0.2-1.0) Aspartate Amino Transf (AST/SGOT) 1125 U/L (15-37) Alanine Aminotransferase (ALT/SGPT) 592 U/L (14-59) Alkaline Phosphatase 399 U/L (46-116) Ammonia 26 mcmol/L (11-34) Total Protein 9.9 g/dL (6.4-8.2) Albumin 2.1 g/dL (3.4-5.0) Albumin/Globulin Ratio 0.3 (1.0-1.7) Lipase 186 U/L (73-393) Laboratory Tests Test 07/04/18 01:26 White Blood Count 6.3 x10^3/uL (4.0-11.0) Red Blood Count 4.02 x10^6/uL (3.50-5.40) Hemoglobin 11.9 g/dL (12.0-15.5) Hematocrit 36.1 % (36.0-47.0) Mean Corpuscular Volume 90 fL (79-100) Mean Corpuscular Hemoglobin 30 pg (25-35) Mean Corpuscular Hemoglobin Concent 33 g/dL (31-37) Red Cell Distribution Width 22.3 % (11.5-14.5) Platelet Count 165 x10^3/uL (140-400) Neutrophils (%) (Auto) 58 % (31-73) Lymphocytes (%) (Auto) 29 % (24-48) Monocytes (%) (Auto) 10 % (0-9) Eosinophils (%) (Auto) 2 % (0-3) Basophils (%) (Auto) 1 % (0-3) Neutrophils # (Auto) 3.6 x10^3uL (1.8-7.7) Lymphocytes # (Auto) 1.8 x10^3/uL (1.0-4.8) Monocytes # (Auto) 0.6 x10^3/uL (0.0-1.1) Eosinophils # (Auto) 0.1 x10^3/uL (0.0-0.7) Basophils # (Auto) 0.1 x10^3/uL (0.0-0.2) Platelet Estimate Adequate (ADEQUATE) Anisocytosis Slight Target Cells Mod Prothrombin Time 17.0 SEC (11.7-14.0) Prothromb Time International Ratio 1.4 (0.8-1.1) Activated Partial Thromboplast Time 38 SEC (24-38) Sodium Level 132 mmol/L (136-145) Potassium Level 3.6 mmol/L (3.5-5.1) Chloride Level 102 mmol/L (98-107) Carbon Dioxide Level 25 mmol/L (21-32) Anion Gap 5 (6-14) Blood Urea Nitrogen 10 mg/dL (7-20) Creatinine 1.0 mg/dL (0.6-1.0) Estimated GFR (Cockcroft-Gault) 71.6 BUN/Creatinine Ratio 10 (6-20) Glucose Level 132 mg/dL (70-99) Calcium Level 8.2 mg/dL (8.5-10.1) Magnesium Level 1.7 mg/dL (1.8-2.4) Total Bilirubin 4.5 mg/dL (0.2-1.0) Aspartate Amino Transf (AST/SGOT) 1125 U/L (15-37) Alanine Aminotransferase (ALT/SGPT) 592 U/L (14-59) Alkaline Phosphatase 399 U/L (46-116) Ammonia 26 mcmol/L (11-34) Total Protein 9.9 g/dL (6.4-8.2) Albumin 2.1 g/dL (3.4-5.0) Albumin/Globulin Ratio 0.3 (1.0-1.7) Lipase 186 U/L (73-393) VTE Prophylaxis Ordered VTE Prophylaxis Devices: Yes VTE Pharmacological Prophylaxi: Yes Assessment/Plan Assessment/Plan AUtoImmune hepatitis, inadequately treated?-On Imuran and other other medication -GI has started prednisone and increased Imuran Obesity, BMI 48 Elevated LFTs, hyperbilirubinemia Smoker less than a pack-a-day Mild hyponatremia Mild hypomagnesemia\ PLAN: follow GI recommendations regarding Imuran and prednisone Obtain [facility] records Needs to lose weight Ultrasound limited abdomen minh patch when necessary, smoking cessation done . less than 30 minutes done today Replace mag 1.g and recheck tomorrow DEMETRI CABRERA MD Jul 04, 2018 11:01
[2018-07-04] MEDS ORDERED: diphenhydrAMINE HCL 25 MG CAPSULE PO PRN (11:15)
--- NOTE | 2018-07-04 12:56 | RAD ---
CT study of the abdomen and pelvis with contrast Clinical indications: Jaundice. Elevated liver function tests. TECHNIQUE: After IV infusion of 75 cc of Omnipaque 300, helical CT scanning of the abdomen and pelvis was performed. No GI contrast was administered. This may decrease the sensitivity to detect GI tract pathology. PQRS compliance Statement One or more of the following individualized dose reduction techniques were utilized for this study: 1. Automated exposure control 2. Adjustment of the mA and/or kV according to patient size 3. Use of iterative reconstruction technique COMPARISON: April 10, 2009. FINDINGS: The liver contour is corrugated. This may be seen with cirrhosis. No hepatic mass is seen. The spleen is not enlarged. The pancreas is normal. Gallbladder is small. Pericholecystic free fluid is evident. No extrahepatic biliary ductal dilatation is seen. No adrenal mass is evident. Both kidneys are normal without hydronephrosis or hydroureter. Urinary bladder is not abnormally distended. No uterine mass or fibroid is seen. No dominant ovarian cyst or mass is seen. No focal aneurysmal dilatation of the abdominal aorta is seen. No enlarged abdominal or pelvic lymphadenopathy is evident. Sigmoid diverticulosis is seen without diverticulitis. The appendix is normal. No obstructive bowel pattern is evident. No free air or free fluid or mesenteric edema is seen. No lung base consolidation is evident. No lytic process is seen. IMPRESSION: Corrugated liver contour which may be seen with hepatitis. The abnormal liver contour is a new finding since the prior study. The spleen is not enlarged. The gallbladder is not distended. There is pericholecystic free fluid. Although this may be seen with cholecystitis, this may be seen with cirrhosis and passive venous congestion as well. Electronically signed by: Stephen Leonardo MD (07/04/2018 12:51 PM) [facility]
[2018-07-04] MEDS: LISINOPRIL 20 MG TABLET PO SCH (13:46)
[2018-07-04] MEDS: hydroCHLOROthiazide 12.5 MG CAPSULE PO SCH (13:46)
[2018-07-04] MEDS: ONDANSETRON ODT 4 MG TAB.RAPDIS. PO SCH ×3 (13:47→22:08)
[2018-07-04] MEDS: azaTHIOprine 50 MG TABLET PO SCH (13:47)
--- NOTE | 2018-07-04 14:35 | RAD ---
Complete abdomen ultrasound study Clinical indications: Jaundice. Hyperbilirubinemia. FINDINGS: No focal enlargement of the pancreas is seen. No aneurysmal dilatation of the abdominal aorta is seen. The intrahepatic portion of the IVC is unremarkable. There is diffuse attenuation of sound throughout the liver which may be seen with fatty infiltration of the liver or cirrhosis. This decreases the sensitivity of sonography to detect focal hepatic lesions. No focal hepatic mass is seen otherwise. The liver measures 17.2 cm in length which is normal. The gallbladder is normal. No gallstones are seen. The pericholecystic free fluid seen on the CT study today is not evident by sonography. The extra hepatic bile duct measures 6.5 mm in caliber which is at the upper limits of normal. The spleen measures 9.1 cm in length which is normal. No ascites is seen. The length of the left kidney is 11.8 cm and the length of the right kidney is 12.5 cm. No hydronephrosis or renal mass or perinephric fluid collection is seen on either side. IMPRESSION: Normal sonographic evaluation of the gallbladder. Pericholecystic free fluid seen around the gallbladder on the CT study today is not evident sonographically. No gallstones are seen. Gallbladder is mildly dilated measuring 9 cm. The extra hepatic bile duct measures 6.5 mm in caliber which is at the upper limits of normal. Attenuation of sound throughout the liver which may be seen with fatty infiltration of the liver or cirrhosis. The liver is normal in size otherwise. The spleen is not enlarged. No ascites is seen. Electronically signed by: Stephen Leonardo MD (07/04/2018 2:31 PM) [facility]
[2018-07-04 15:25] VITALS: BP 124/80
[2018-07-04 19:00] VITALS: BP 133/72
[2018-07-04 23:00] VITALS: BP 126/71
[2018-07-05 03:00] VITALS: BP 122/66
[2018-07-05] MEDS: ONDANSETRON ODT 4 MG TAB.RAPDIS. PO SCH ×2 (06:00→13:34)
[2018-07-05 07:00] VITALS: BP 128/69
[2018-07-05] MEDS: hydroCHLOROthiazide 12.5 MG CAPSULE PO SCH (08:47)
[2018-07-05] MEDS: azaTHIOprine 50 MG TABLET PO SCH (08:47)
[2018-07-05] MEDS: LISINOPRIL 20 MG TABLET PO SCH (08:51)
[2018-07-05 11:00] VITALS: BP 121/51
--- NOTE | 2018-07-05 12:23 | PDOC ---
PROGRESS NOTES Chief Complaint Chief Complaint CC: hyperbilirubinemia transaminasemia Jaundice Puritis autoimmune hepatitis History of Present Illness History of Present Illness Patient was seen and examined. No new complaints. Laying comfortably in bed. Vitals Vitals Vital Signs Date Time Temp Pulse Resp B/P (MAP) Pulse Ox O2 Delivery O2 Flow Rate FiO2 07/05/18 11:00 98.2 71 18 121/51 (74) 98 Room Air 98.2 Physical Exam General: Alert, Oriented X3, Cooperative, No acute distress, Other (icteric sclerae, itching or scratching during interview) Heart: Regular rate, Normal S1, Normal S2 Abdomen: Normal bowel sounds, Soft, No tenderness, No hepatosplenomegaly, No masses Extremities: No clubbing, No cyanosis, No edema, Normal pulses, No tenderness/ swelling Skin: No rashes, No breakdown, No significant lesion Review of Systems Review of Systems Heart: denies chest pain Lungs: denies soa Assessment and Plan Assessmemt and Plan Assessment AUtoImmune hepatitis Obesity, BMI 48 Elevated LFTs, hyperbilirubinemia Smoker less than a pack-a-day Mild hyponatremia Mild hypomagnesemia PLAN: follow GI recommendations regarding Imuran and prednisone Obtain [facility] records Needs to lose weight Ultrasound limited abdomen Daily LFTs Dispo disposition pending Appreciate subspecialty input Comment Review of Relevant I have reviewed the following items pascual (where applicable) has been applied. Labs Laboratory Tests Test 07/04/18 01:26 White Blood Count 6.3 x10^3/uL (4.0-11.0) Red Blood Count 4.02 x10^6/uL (3.50-5.40) Hemoglobin 11.9 g/dL (12.0-15.5) Hematocrit 36.1 % (36.0-47.0) Mean Corpuscular Volume 90 fL (79-100) Mean Corpuscular Hemoglobin 30 pg (25-35) Mean Corpuscular Hemoglobin Concent 33 g/dL (31-37) Red Cell Distribution Width 22.3 % (11.5-14.5) Platelet Count 165 x10^3/uL (140-400) Neutrophils (%) (Auto) 58 % (31-73) Lymphocytes (%) (Auto) 29 % (24-48) Monocytes (%) (Auto) 10 % (0-9) Eosinophils (%) (Auto) 2 % (0-3) Basophils (%) (Auto) 1 % (0-3) Neutrophils # (Auto) 3.6 x10^3uL (1.8-7.7) Lymphocytes # (Auto) 1.8 x10^3/uL (1.0-4.8) Monocytes # (Auto) 0.6 x10^3/uL (0.0-1.1) Eosinophils # (Auto) 0.1 x10^3/uL (0.0-0.7) Basophils # (Auto) 0.1 x10^3/uL (0.0-0.2) Platelet Estimate Adequate (ADEQUATE) Anisocytosis Slight Target Cells Mod Prothrombin Time 17.0 SEC (11.7-14.0) Prothromb Time International Ratio 1.4 (0.8-1.1) Activated Partial Thromboplast Time 38 SEC (24-38) Sodium Level 132 mmol/L (136-145) Potassium Level 3.6 mmol/L (3.5-5.1) Chloride Level 102 mmol/L (98-107) Carbon Dioxide Level 25 mmol/L (21-32) Anion Gap 5 (6-14) Blood Urea Nitrogen 10 mg/dL (7-20) Creatinine 1.0 mg/dL (0.6-1.0) Estimated GFR (Cockcroft-Gault) 71.6 BUN/Creatinine Ratio 10 (6-20) Glucose Level 132 mg/dL (70-99) Calcium Level 8.2 mg/dL (8.5-10.1) Magnesium Level 1.7 mg/dL (1.8-2.4) Total Bilirubin 4.5 mg/dL (0.2-1.0) Aspartate Amino Transf (AST/SGOT) 1125 U/L (15-37) Alanine Aminotransferase (ALT/SGPT) 592 U/L (14-59) Alkaline Phosphatase 399 U/L (46-116) Ammonia 26 mcmol/L (11-34) Total Protein 9.9 g/dL (6.4-8.2) Albumin 2.1 g/dL (3.4-5.0) Albumin/Globulin Ratio 0.3 (1.0-1.7) Lipase 186 U/L (73-393) Medications Current Medications Dexamethasone Sodium Phosphate (Decadron) 10 mg 1X ONCE IV Last administered on 07/04/18at 02:30; Start 07/04/18 at 01:45; Stop 07/04/18 at 01:46; Status DC Diphenhydramine HCl (Benadryl) 25 mg 1X ONCE IVP Last administered on at 02:15; Start 07/04/18 at 01:45; Stop 07/04/18 at 01:46; Status DC Sodium Chloride 1,000 ml @ 1,000 mls/hr 1X ONCE IV Last administered on at 02:15; Start 07/04/18 at 01:45; Stop 07/04/18 at 02:44; Status DC Magnesium Sulfate 50 ml @ 25 mls/hr 1X ONCE IV Last administered on 07/04/18at 03:02; Start 07/04/18 at 03:00; Stop 07/04/18 at 04:59; Status DC Ondansetron HCl (Zofran) 4 mg PRN Q8HRS PRN IV NAUSEA/VOMITING; Start 07/04/18 at 03:00; Stop 07/04/18 at 08:12; Status DC Ondansetron HCl (Zofran) 4 mg PRN Q6HRS PRN IV NAUSEA/VOMITING; Start 07/04/18 at 08:15 Acetaminophen (Tylenol) 500 mg PRN Q6HRS PRN PO MILD PAIN / TEMP; Start at 08:15 Ondansetron HCl (Zofran Odt) 4 mg Q8HRS PO Last administered on 07/04/18at 22:08 ; Start 07/04/18 at 09:00 Hydroxyzine Pamoate (Vistaril) 25 mg PRN TID PRN PO ITCHING 2ND CHOICE; Start 07/04/18 at 08:15 Non-Formulary Medication (Lisinopril/ Hydrochlorothiazide (Lisinopril-Hctz 20- 12.5 Mg Tab)) 1 tab DAILY PO ; Start 07/04/18 at 09:00; Status UNV Lisinopril (Prinivil) 20 mg DAILY PO Last administered on 07/05/18at 08:51; Start 07/04/18 at 09:00 Hydrochlorothiazide (Microzide) 12.5 mg DAILY PO Last administered on at 08:47; Start 07/04/18 at 09:00 Iohexol (Omnipaque 300 Mg/ml) 75 ml 1X ONCE IV Last administered on 07/04/18at 09:30; Start 07/04/18 at 09:30; Stop 07/04/18 at 09:31; Status DC Info (CONTRAST GIVEN -- Rx MONITORING) 1 each PRN DAILY PRN MC SEE COMMENTS; Start 07/04/18 at 09:30; Stop 07/06/18 at 09:29 Azathioprine (Imuran) 150 mg DAILY PO Last administered on 07/05/18at 08:47; Start 07/04/18 at 10:00 Prednisone (Prednisone) 40 mg DAILY PO ; Start 07/04/18 at 10:00; Stop 07/04/18 at 10:00; Status DC Prednisone (Prednisone) 40 mg DAILY PO Last administered on 07/04/18at 13:51; Start 07/04/18 at 10:00 Diphenhydramine HCl (Benadryl) 25 mg PRN Q6HRS PRN PO ITCHING 1ST CHOICE; Start 07/04/18 at 11:15 Active Scripts Active Vistaril (Hydroxyzine Pamoate) 25 Mg Capsule 1 Cap PO TID PRN Zofran Odt (Ondansetron) 4 Mg Tab.rapdis 1 Tab SL Q8HRS Reported Lisinopril-Hctz 20-12.5 Mg Tab (Lisinopril/Hydrochlorothiazide) 1 Each Tablet 1 Tab PO DAILY Vitals/I & O Vital Sign - Last 24 Hours 07/04/18 07/04/18 07/04/18 07/04/18 13:46 15:25 19:00 20:00 Temp 97.7 97.9 97.7 97.9 Pulse 87 74 80 Resp 18 18 B/P (MAP) 123/74 124/80 (95) 133/72 (92) Pulse Ox 94 97 O2 Delivery Room Air Room Air Room Air 07/04/18 07/05/18 07/05/18 07/05/18 23:00 03:00 07:00 08:00 Temp 98.1 98.1 Pulse 71 72 82 Resp 17 19 18 B/P (MAP) 126/71 (89) 122/66 (84) 128/69 (88) Pulse Ox 97 95 97 O2 Delivery Room Air Room Air Room Air Room Air 07/05/18 07/05/18 08:51 11:00 Temp 98.2 98.2 Pulse 82 71 Resp 18 B/P (MAP) 128/69 121/51 (74) Pulse Ox 98 O2 Delivery Room Air Intake and Output 07/04/18 07/04/18 07/05/18 15:01 23:01 07:01 Intake Total 360 ml 360 ml Balance 360 ml 360 ml TRACE DAWN III DO Jul 05, 2018 12:23
--- NOTE | 2018-07-05 13:21 | PDOC ---
Subjective: Subjective: Going home later. Started coughing this morning and then had some epigastric/chest discomfort - GI cocktail has helped this in the past. Objective: Objective: No labs today, has DC orders. Vital Signs: Vital Signs Date Time Temp Pulse Resp B/P (MAP) Pulse Ox O2 Delivery O2 Flow Rate FiO2 07/05/18 11:00 98.2 71 18 121/51 (74) 98 Room Air 98.2 Imaging: US IMPRESSION: Normal sonographic evaluation of the gallbladder. Pericholecystic free fluid seen around the gallbladder on the CT study today is not evident sonographically. No gallstones are seen. Gallbladder is mildly dilated measuring 9 cm. The extra hepatic bile duct measures 6.5mm in caliber which is at the upper limits of normal. Attenuation of sound throughout the liver which may be seen with fatty infiltration of the liver or cirrhosis. The liver is normal in size otherwise. The spleen is not enlarged. No ascites is seen. CT A/P IMPRESSION: Corrugated liver contour which may be seen with hepatitis. The abnormal liver contour is a new finding since the prior study. The spleen is not enlarged. The gallbladder is not distended. There is pericholecystic free fluid. Although this may be seen with cholecystitis, this may be seen with cirrhosis and passive venous congestion as well. PE: GEN: NAD LUNGS: CTAB HEART: RRR ABD: epigastric discomfort NEURO/PSYCH: A & O �3 A/P: Suspected AIH - previous workup at Epigastric/chest discomfort, h/o GERD -- Note plans for DC - would send on prednisone and Imuran. Encouraged her to follow-up as outpt - ? - she is aware of income-based self- pay clinics but say they have long waits. Hopefully able to get insurance at some point. She says she has GI cocktail at home that was her daughter's - it has worked for epigastric/chest discomfort in the past - okay to use. Also encouraged resuming PPI - was previously on Prevacid for GERD/pain but stopped. Called by RN - DC orders left but no scripts given by primary so I returned to leave prednisone 20mg QD + Imuran 50mg (3 daily) - she says she doesn't need Imuran (has a supply at home) and she is aware the importance of monitoring labs on this. She is familiar with prednisone. Encouraged her again to have interval labs checked and to follow-up re: plans to taper steroids - she's not sure where to go but her friend suggested a place on [facility]. She says [facility] won' t see her to have her labs checked. She would like to discharge and return to work tomorrow. LOUISE HALE Jul 05, 2018 13:21
[2018-07-05] MEDS ORDERED: LIDO:MAALOX 1:1 20 ML SINGLE DOSE. SWSW ONE (13:30)
--- NOTE | 2018-07-05 15:56 | NUR ---
Discharge Note: WILLIAM WALSH [address] Discharge instructions and discharge home medications reviewed with Patient and a copy given. All questions have been answered and understanding verbalized. The following instructions and handouts were given: Abdominal Pain, GERD Discontinued lines and drains: PIV in Right AC removed, Catheter intact. Patient discharged to Home with Self-Care via Personal Vehicle.
--- NOTE | 2018-07-05 16:07 | NUR ---
SW following for discharge planning. Discussed with RN, RN advised no SW needs at this time. SW attempted to meet with pt to give self pay resources, however pt had already discharged home with self care. No further SW needs.
[2018-07-05 19:14] LABS: ANA INTERP Negative (.)
--- NOTE | 2018-07-14 11:52 | DS ---
DATE OF DISCHARGE: 07/05/2018 ADMISSION DIAGNOSES: Hyperbilirubinemia and autoimmune hepatitis for 3 years. DISCHARGE DIAGNOSES: Resolving hyperbilirubinemia, coagulopathy with an INR of 1.4, autoimmune hepatitis. HOSPITAL COURSE: The patient is a pleasant 47-year-old female who has autoimmune hepatitis. She was presented with hyperbilirubinemia. Her transaminases were high as well. She also had a high INR. We admitted the patient, gave her IV steroids, consulted GI and over the next couple of days, she improved. We discharged on a steroid taper. DISPOSITION: Home with steroid taper. ACTIVITY: As tolerated. DIET: Low sodium. MEDICATIONS: Please see MRAD. TOTAL TIME ON DISCHARGE: 31 minutes. TRACE DAWN DO DR: MILDRED/lyric JOB#: [id number] / [id number]
== END 2018-07-05 14:45 | disposition home or self-care (01) | DRG 442 ==
LOC: ER 01:00 → 5 SOUTH 03:50
PROVIDERS: ADMIT Internal Medicine; ATTEND Internal Medicine
DX: K75.4 Autoimmune hepatitis (principal); Z68.42 Body mass index [BMI] 45.0-49.9, adult; E87.1 Hypo-osmolality and hyponatremia; K21.9 Gastro-esophageal reflux disease without esophagitis; L29.9 Pruritus, unspecified; F17.210 Nicotine dependence, cigarettes, uncomplicated; I10 Essential (primary) hypertension; E66.9 Obesity, unspecified; E83.42 Hypomagnesemia; Z88.5 Allergy status to narcotic agent
CPT/HCPCS: 36415; 74177; 76700; 80053; 82140; 83690; 83735; 85025; 85610; 85730; 86038; 96361; 96365; 96375; J1100; J1200; J3475; J7030; J7500; J7512; Q0162; Q9967; 99285-25; G0378

== ENCOUNTER 2020-06-13 16:50 | Emergency (ER) | payer SELFPAY ==
[~2020-06-13] VITALS: Ht 172.7 cm; Wt 127.0 kg
[~2020-06-13 16:50] MED LIST changes: +LISI1TAB37 PO
[2020-06-13 17:00] VITALS: BP 166/96
[2020-06-13] MEDS ORDERED: KETOROLAC 30 MG/ML VIAL. IM ONE (17:15)
[2020-06-13] MEDS ORDERED: DEXAMETHASONE 4 MG TABLET PO ONE (17:15)
[2020-06-13] MEDS ORDERED: PRED20TA PO (17:48)
--- NOTE | 2020-06-13 17:49 | PHYS DOC ---
Past Medical History Past Medical History: GERD Additional Past Medical Histor: AUTOIMMUNE LIVER DISORDER Past Surgical History: No Surgical History Smoking Status: Current Every Day Smoker Alcohol Use: Occasionally Drug Use: None General Adult EDM: Chief Complaint: KNEE INJURY HPI: HPI: Patient is a 49 year old female presents with 1 week history of left knee pain. Reports no known injury. Denies redness. Denies fever/chills. Denies numbness or tingling. Reports has been taking naproxen with minimal improvement. Worse with walking. Denies prior injury or surgery to knee. Review of Systems: Review of Systems: Constitutional: Denies fever or chills Eyes: Denies change in visual acuity, redness, or eye pain HENT: Denies nasal congestion or sore throat Respiratory: Denies cough or shortness of breath Cardiovascular: Denies chest pain or palpitations GI: Denies abdominal pain, nausea, vomiting, or diarrhea : Denies dysuria or hematuria Musculoskeletal: Denies back pain; reports left knee pain Integument: Denies rash or skin lesions Neurologic: Denies headache, focal weakness or sensory changes Complete systems were reviewed and found to be within normal limits, except as documented in this note. Current Medications: Current Medications Medications (Trade) Dose Ordered Sig/Narendra Start Time Stop Time Status Last Admin Dose Admin Dexamethasone (Decadron) 10 mg 1X ONCE 06/13/20 17:15 06/13/20 17:16 DC Ketorolac Tromethamine (Toradol 30mg Vial) 30 mg 1X ONCE 06/13/20 17:15 06/13/20 17:16 DC Allergies: Allergies: Allergies Coded Allergies Type Severity Reaction Last Updated Verified codeine Allergy Intermediate 05/18/14 Yes Physical Exam: PE: Constitutional: Well developed, well nourished, no acute distress, non-toxic appearance HENT: Normocephalic, atraumatic Eyes: Conjunctiva normal, no discharge Neck: Normal range of motion, supple Lungs & Thorax: Equal chest rise and fall, no respiratory distress Skin: Warm, dry, no erythema, no rash Extremities: Left knee tenderness on ROM, joint intact, anterior drawer negative, moderate swelling about knee, distal pulses intact, no deformity, no edema or calf tenderness Neurologic: Alert and oriented X 3, no focal deficits noted Psychologic: Affect normal, judgement normal Current Patient Data: Vital Signs: Vital Signs Date Time Temp Pulse Resp B/P (MAP) Pulse Ox O2 Delivery O2 Flow Rate FiO2 06/13/20 17:00 97.8 99 16 166/96 (119) 99 Room Air 97.8 EKG: EKG: [] Radiology/Procedures: Radiology/Procedures: PROCEDURE: KNEE LEFT 3V XR KNEE _3 VIEWS_LT DATE: 06/13/2020 5:42 PM INDICATION: Reason: pain / Spl. Instructions: / History: COMPARISON: None. FINDINGS: Bones: There is no evidence of acute fracture or dislocation. Joints: Mild medial compartment joint space narrowing. Moderate knee joint effusion. Miscellaneous: None. IMPRESSION: No acute osseous abdomen body. Moderate knee joint effusion Electronically signed by: Gerardo Maxwell MD (06/13/2020 5:54 PM) [facility] Course & Med Decision Making: Course & Med Decision Making Pertinent Imaging studies reviewed. (See chart for details) Patient presents with left knee pain x 1 week. Denies trauma. Distal pulses intact. NO deformity. Mild swelling about knee noted without erythema or increased warmth. XR obtained without fracture/dislocation. Moderate joint effusion noted. Concern for arthritic component. MIRA applied. Educated on RICE. ICE applied. Pain addressed. Symptomatic 1 time does of long acting steroid provided. Patient stable for discharge home with outpatient follow-up with PCP/Orthopedics. Orthopedic referral provided. Discussed findings and plan with patient, who acknowledges understanding and agreement. Ashleigh Disclaimer: Ashleigh Disclaimer: This electronic medical record was generated, in whole or in part, using a voice recognition dictation system. Splinting Splinting : Location: Left knee Pre-Made Type: MIRA bandage Pre-Proc Neuro Vasc Exam: normal Post-Proc Neuro Vasc Exam: normal, unchanged from pre-exam Departure Departure Impression: Primary Impression: Left knee pain Qualified Codes: M25.562 - Pain in left knee Disposition: 01 DC HOME SELF CARE/HOMELESS Condition: STABLE Referrals: UNKNOWN PCP NAME (PCP) SHAYLA PARSON MD Patient Instructions: Knee Pain, [id number], Knee Wraps (Elastic Bandage) and RICE Additional Instructions: May take over the counter Tylenol and/or Ibuprofen/Naproxen for pain or disc omfort. ASHLEY PATEL DO Jun 13, 2020 17:49
--- NOTE | 2020-06-13 17:56 | RAD ---
XR KNEE _3 VIEWS_LT DATE: 06/13/2020 5:42 PM INDICATION: Reason: pain / Spl. Instructions: / History: COMPARISON: None. FINDINGS: Bones: There is no evidence of acute fracture or dislocation. Joints: Mild medial compartment joint space narrowing. Moderate knee joint effusion. Miscellaneous: None. IMPRESSION: No acute osseous abdomen body. Moderate knee joint effusion Electronically signed by: Gerardo Maxwell MD (06/13/2020 5:54 PM) [facility]
== END 2020-06-13 18:20 | disposition home or self-care (01) ==
LOC: ER 16:50
DX: M25.562 Pain in left knee (principal); K21.9 Gastro-esophageal reflux disease without esophagitis; F17.200 Nicotine dependence, unspecified, uncomplicated; Z88.5 Allergy status to narcotic agent
CPT/HCPCS: 73562; 96372; 99283; J1885

== ENCOUNTER 2020-10-04 23:55 | Emergency (ER) | payer SELFPAY ==
[~2020-10-04] VITALS: Ht 172.7 cm; Wt 129.5 kg
[~2020-10-04 23:55] MED LIST changes: +PRED20TA PO
[2020-10-05 00:30] LABS: BASO # 0.1 x10^3/uL (0.0-0.2); BASO % 1 % (0-3); EOS # 0.1 x10^3/uL (0.0-0.7); EOS % 2 % (0-3); HEMATOCRIT 39.1 % (36.0-47.0); HEMOGLOBIN 12.7 g/dL (12.0-15.5); LYMPH # 2.1 x10^3/uL (1.0-4.8); LYMPH % 36 % (24-48); MEAN CORPUSCULAR HEMOGLOBIN 27 pg (25-35); MEAN CORPUSCULAR HGB CONC 32 g/dL (31-37); MEAN CORPUSCULAR VOLUME 83 fL (79-100); MONO # 1.1 x10^3/uL (0.0-1.1); MONO % 19 % (0-9); NEUT # 2.4 x10^3/uL (1.8-7.7); NEUT % 41 % (31-73); PLATELET COUNT 158 x10^3/uL (140-400); RED BLOOD COUNT 4.73 x10^6/uL (3.50-5.40); RED CELL DISTRIBUTION WIDTH 18.6 % (11.5-14.5); WHITE BLOOD COUNT 5.7 x10^3/uL (4.0-11.0)
[2020-10-05 00:42] LABS: CREATININE 0.8 mg/dL (0.6-1.0); GFR 91.5; POTASSIUM 4.1 mmol/L (3.5-5.1)
[2020-10-05 00:44] LABS: BILIRUBIN,URINE NEGATIVE (NEG); CLARITY,URINE CLOUDY; COLOR,URINE YELLOW; NITRITE,URINE NEGATIVE (NEG); PH,URINE 5.5 (<5.0-8.0); PROTEIN,URINE NEGATIVE (NEG-TRACE); UROBILINOGEN,URINE 0.2 mg/dL (0.2 mg/dL)
[2020-10-05 00:48] LABS: ALBUMIN 3.5 g/dL (3.4-5.0); ALBUMIN/GLOBULIN RATIO 0.8 (1.0-1.7); TOTAL BILIRUBIN 0.3 mg/dL (0.2-1.0); TOTAL PROTEIN 8.1 g/dL (6.4-8.2)
[2020-10-05] MEDS: diphenhydrAMINE HCL 25 MG CAPSULE PO ONE (01:05)
[2020-10-05] MEDS: KETOROLAC 30 MG/ML VIAL. IVP ONE (01:05)
[2020-10-05] MEDS: ONDANSETRON PF 4 MG/2 ML VIAL. IVP ONE (01:05)
[2020-10-05] MEDS: PROCHLORPERAZINE 10 MG/2 ML VIAL. IV ONE (01:05)
[2020-10-05] MEDS: IV NORMAL SALINE 1000ML BAG 1,000 ML IV ONE (01:06)
[2020-10-05 01:11] LABS: BACTERIA,URINE FEW /HPF (0-FEW); RBC,URINE OCC /HPF (0-2); WBC,URINE OCC /HPF (0-4)
--- NOTE | 2020-10-05 01:11 | RAD ---
Two-view chest dated 10/04/2020. No comparison available. CLINICAL INDICATION: Chest pain. FINDINGS: PA and lateral views obtained. Heart and mediastinal contours are within normal limits. Lungs are ramona ar. No consolidation or pleural effusion. No pneumothorax. IMPRESSION: No acute radiographic abnormality. Electronically signed by: Gordo Núñez MD (10/05/2020 1:09 AM) [facility]
--- NOTE | 2020-10-05 01:12 | RAD ---
CT head without contrast dated 10/05/2020. No comparison available. CLINICAL INDICATION: Severe headache. TECHNIQUE: Contiguous axial imaging the head was performed from skull base to vertex. No contrast administered. One or more of the following individualized dose reduction techniques were utilized for this examinat ion: 1. Automated exposure control 2. Adjustment of the mA and/or kV according to patient size 3. Use of iterative reconstruction technique FINDINGS: Ventricles and sulci are within normal limits for age. No midline shift or mass effect. Brain parench yma is of normal attenuation. No hemorrhage or extra-axial collection. Posterior fossa and brainstem unremarkable. Mild mucosal thickening of the ethmoid air cells. The visualized paranasal sinuses and mastoid air ce lls are otherwise clear. No apparent calvarial abnormality. IMPRESSION: No evidence of acute intracranial abnormality. Electronically signed by: Gordo Núñez MD (10/05/2020 1:10 AM) [facility]
--- NOTE | 2020-10-05 02:58 | ED.ADGEN ---
Past Medical History Past Medical History: GERD Additional Past Medical Histor: AUTOIMMUNE LIVER DISORDER Past Surgical History: No Surgical History Smoking Status: Current Every Day Smoker Alcohol Use: None Drug Use: None General Adult EDM: Chief Complaint: HEADACHE HPI: HPI: Patient is a 50-year-old female presents to the emergency room complaining of headache and chest pain. Patient states that she woke up yesterday morning with a headache. She took ibuprofen midday and then laid down for a nap. She states when she woke up she still had the headache and it was only getting worse. She states when she woke up from her nap she also had a substernal and right-sided chest pain that is worse with deep breaths. She denies any cough, fever, URI symptoms. Pain is not worse with movement. She has never had pain like this before. She states that she generally feels unwell. She has not tried to take anything other than ibuprofen. Review of Systems: Review of Systems: Complete ROS is negative unless otherwise documented in HPI Current Medications: Current Medications Medications (Trade) Dose Ordered Sig/Narendra Start Time Stop Time Status Last Admin Dose Admin Diphenhydramine HCl (Benadryl) 25 mg 1X ONCE 10/05/20 01:00 10/05/20 01:01 DC 10/05/20 01:05 25 MG Info (CONTRAST GIVEN -- Rx MONITORING) 1 each PRN DAILY PRN 10/05/20 03:00 10/07/20 02:59 Iohexol (Omnipaque 350 Mg/ml) 100 ml 1X ONCE 10/05/20 03:00 10/05/20 03:01 DC 10/05/20 03:11 100 ML Ketorolac Tromethamine (Toradol 30mg Vial) 30 mg 1X ONCE 10/05/20 01:00 10/05/20 01:01 DC 10/05/20 01:05 30 MG Ondansetron HCl (Zofran) 4 mg 1X ONCE 10/05/20 01:00 10/05/20 01:01 DC 10/05/20 01:05 4 MG Prochlorperazine Edisylate (Compazine) 10 mg 1X ONCE 10/05/20 01:00 10/05/20 01:01 DC 10/05/20 01:05 10 MG Sodium Chloride 1,000 ml @ 1,000 mls/hr 1X ONCE 10/05/20 01:00 10/05/20 01:59 DC 10/05/20 01:06 1,000 MLS/HR Allergies: Allergies: Allergies Coded Allergies Type Severity Reaction Last Updated Verified codeine Allergy Intermediate 05/18/14 Yes Physical Exam: PE: General: Awake, alert, mild distress, tearful. Well Nourished, well hydrated. Cooperative HEENT: Atraumatic, EOMI, PERRL, airway patent, moist oral mucosa Neck: Supple, trachea midline Respiratory: CTA bilaterally, normal effort, no wheezing/crackles CV: RRR, no murmur, cap refill <2 GI: Soft, nondistended, nontender, no masses MSK: No obvious deformities Skin: Warm, dry, intact Neuro: A&O x3, speech NL, 5/5 strength in BUE/BLE distally and proximally, CN 2- 12 intact, cerebellar testing normal Psych: Normal affect, normal mood, not suicidal or homicidal Current Patient Data: Labs: Laboratory Tests Test 10/05/20 00:23 10/05/20 00:34 10/05/20 00:37 White Blood Count 5.7 x10^3/uL (4.0-11.0) Red Blood Count 4.73 x10^6/uL (3.50-5.40) Hemoglobin 12.7 g/dL (12.0-15.5) Hematocrit 39.1 % (36.0-47.0) Mean Corpuscular Volume 83 fL (79-100) Mean Corpuscular Hemoglobin 27 pg (25-35) Mean Corpuscular Hemoglobin Concent 32 g/dL (31-37) Red Cell Distribution Width 18.6 % (11.5-14.5) H Platelet Count 158 x10^3/uL (140-400) Neutrophils (%) (Auto) 41 % (31-73) Lymphocytes (%) (Auto) 36 % (24-48) Monocytes (%) (Auto) 19 % (0-9) H Eosinophils (%) (Auto) 2 % (0-3) Basophils (%) (Auto) 1 % (0-3) Neutrophils # (Auto) 2.4 x10^3/uL (1.8-7.7) Lymphocytes # (Auto) 2.1 x10^3/uL (1.0-4.8) Monocytes # (Auto) 1.1 x10^3/uL (0.0-1.1) Eosinophils # (Auto) 0.1 x10^3/uL (0.0-0.7) Basophils # (Auto) 0.1 x10^3/uL (0.0-0.2) Platelet Estimate Pending D-Dimer (Lawanda) 0.56 ug/mlFEU (0.00-0.50) H Sodium Level 141 mmol/L (136-145) Potassium Level 4.1 mmol/L (3.5-5.1) Chloride Level 107 mmol/L (98-107) Carbon Dioxide Level 27 mmol/L (21-32) Anion Gap 7 (6-14) Blood Urea Nitrogen 14 mg/dL (7-20) Creatinine 0.8 mg/dL (0.6-1.0) Estimated GFR (Cockcroft-Gault) 91.5 BUN/Creatinine Ratio 18 (6-20) Glucose Level 111 mg/dL (70-99) H Calcium Level 9.0 mg/dL (8.5-10.1) Total Bilirubin 0.3 mg/dL (0.2-1.0) Aspartate Amino Transferase (AST) 48 U/L (15-37) H Alanine Aminotransferase (ALT) 43 U/L (14-59) Alkaline Phosphatase 153 U/L (46-116) H Troponin I Quantitative < 0.017 ng/mL (0.000-0.055) Total Protein 8.1 g/dL (6.4-8.2) Albumin 3.5 g/dL (3.4-5.0) Albumin/Globulin Ratio 0.8 (1.0-1.7) L Urine Collection Type Unknown Urine Color Yellow Urine Clarity Cloudy Urine pH 5.5 (<5.0-8.0) Urine Specific [place] 1.015 (1.000-1.030) Urine Protein Negative mg/dL (NEG-TRACE) Urine Glucose (UA) Negative mg/dL (NEG) Urine Ketones (Stick) Negative mg/dL (NEG) Urine Blood Negative (NEG) Urine Nitrite Negative (NEG) Urine Bilirubin Negative (NEG) Urine Urobilinogen Dipstick 0.2 mg/dL (0.2 mg/dL) Urine Leukocyte Esterase Negative (NEG) Urine RBC Occ /HPF (0-2) Urine WBC Occ /HPF (0-4) Urine Squamous Epithelial Cells Many /LPF Urine Bacteria Few /HPF (0-FEW) Urine Mucus Mod /LPF POC Urine HCG, Qualitative Hcg negative (Negative) Laboratory Tests 10/05/20 00:23 Laboratory Tests 10/05/20 00:23 Vital Signs: Vital Signs Date Time Temp Pulse Resp B/P (MAP) Pulse Ox O2 Delivery O2 Flow Rate FiO2 10/05/20 02:11 92 16 97 10/05/20 00:17 98.8 182/101 (128) Room Air 98.8 EKG: EKG: [] Heart Score: C/O Chest Pain: N/A Risk Factors: Risk Factors: DM, Current or recent (<one month) smoker, HTN, HLP, family history of CAD, obesity. Risk Scores: Score 0 - 3: 2.5% MACE over next 6 weeks - Discharge Home Score 4 - 6: 20.3% MACE over next 6 weeks - Admit for Clinical Observation Score 7 - 10: 72.7% MACE over next 6 weeks - Early Invasive Strategies Radiology/Procedures: Radiology/Procedures: [] Course & Med Decision Making: Course & Med Decision Making Pertinent Labs and Imaging studies reviewed. (See chart for details) Patient is 50-year-old female presents to the emergency room complaining of a migraine and chest pain. Patient states that she does get migraines occasionally. She typically takes ibuprofen however this does not typically work. Patient's neurologic exam is normal. She does state this is the worst headache she is ever had. CT head was done and is negative for any intracranial hemorrhage. Patient also has chest pain. Cardiac evaluation was done and is normal. D-dimer is elevated and a CT angio will be done. Patient was given medications to treat her migraine. Patient symptoms resolved with her migraine cocktail. CT angio was negative. Patient's test results and vitals while in the ED were fully reviewed and discussed with the patient. Patient is stable and at this time does not need admission to the hospital. We have discussed strict return precautions and the importance of following up with their Primary Care Physician. Patient stated understanding and was given an opportunity to ask any questions. Patient is in agreement with plan. Ashleigh Disclaimer: Asheligh Disclaimer: This electronic medical record was generated, in whole or in part, using a voice recognition dictation system. Departure Departure Impression: Primary Impression: Migraine Additional Impression: Chest pain Disposition: 01 HOME / SELF CARE / HOMELESS Condition: IMPROVED Referrals: NO PCP (PCP) Patient Instructions: Migraine Headache Problem Qualifiers SIMA MITTAL MD Oct 05, 2020 02:57
[2020-10-05] MEDS ORDERED: CONTRAST GIVEN. MC PRN (03:00)
[2020-10-05] MEDS: IOHEXOL 350 MG/ML 100 ML VIAL. IV ONE (03:11)
--- NOTE | 2020-10-05 03:35 | RAD ---
CTA chest with contrast dated 10/05/2020. No comparison available. CLINICAL INDICATION: Elevated d-dimer and chest pain. Evaluate for pulmonary embolus. TECHNIQUE: Contiguous axial imaging the chest performed following the intravenous and demonstration of 100 cc Om nipaque 350. One or more of the following individualized dose reduction techniques were utilized for this examinat ion: 1. Automated exposure control 2. Adjustment of the mA and/or kV according to patient size 3. Use of iterative reconstruction technique. FINDINGS: Contrast bolus is adequate. No evidence of central, lobar or segmental pulmonary embolus. Subsegmenta l branches are not well evaluated based on technique. Heart size mildly enlarged. No pericardial effusion. No mediastinal, hilar or axillary lymphadenopath y. Thyroid gland unremarkable. Central airways are patent. Lungs are clear. No consolidation or pleural effusion. There is some mild groundglass opacity in the lower lobes, nonspecific. Calcified granuloma left upper lobe. Limited images of upper abdomen are unremarkable. Liver is nodular in contour suggesting cirrhosis. Bone windows show no acute finding. Mild multilevel spondylosis. IMPRESSION: 1. No evidence of central, lobar or segmental pulmonary embolus. 2. Grossly clear lungs. Electronically signed by: Gordo Núñez MD (10/05/2020 3:33 AM) [facility]
[2020-10-05 04:11] VITALS: BP 158/106
[2020-10-05 04:51] LABS: % BASOS 1 % (0-3); % EOS 3 % (0-5); % LYMPHS 36 % (24-48); % MONOS 20 % (0-10); % SEGS 40 % (35-66)
[2020-10-05 04:52] LABS: PLT ESTIMATE ADEQUATE (ADEQUATE)
--- NOTE | 2020-10-05 06:21 | EKG ---
[facility] [address] [place] [address] Test Date: 2020-10-05 Test Time: 00:13:19 Pat Name: WILLIAM WALSH Department: Room: Gender: F Manager Action: : 1970 Requested By: SIMA MITTAL Order Number: [id number] Reading MD: Measurements Intervals [place] Rate: 101 P: 31 [place]: 186 QRS: 20 QRSD: 70 T: 22 QT: 314 QTc: 408 Interpretive Statements SINUS TACHYCARDIA LEFT ATRIAL ABNORMALITY ABNORMAL ECG RI6.01 No previous ECG available for comparison
== END 2020-10-05 04:29 | disposition home or self-care (01) ==
LOC: ER 23:55
DX: G43.909 Migraine, unspecified, not intractable, without status migrainosus (principal); R07.2 Precordial pain; K21.9 Gastro-esophageal reflux disease without esophagitis; F17.200 Nicotine dependence, unspecified, uncomplicated
CPT/HCPCS: 36415; 70450; 71046; 71275; 80053; 81001; 81025; 84484; 85007; 85025; 85379; 93005; 96361; 96374; 96375; 99285; J0780; J1885; J2405; J7030; Q0163; Q9967